=== PATIENT | female | born 1970 | race Hispanic/Latino ===

== ENCOUNTER 2018-04-20 14:02 | Emergency (ER) | payer MEDICAID, OTHER ==
[2018-04-20 14:26] VITALS: BMI 34.0
[2018-04-20 14:31] VITALS: RESP 18; TEMP 98
[2018-04-20 14:36] VITALS: O2SAT 99
[2018-04-20] MEDS ORDERED: DiphenhydrAMINE 50 mg/ml Inj IM STA (14:36)
--- NOTE | 2018-04-20 14:39 | ED PDOC ---
Arrival/HPI - General Historian: Patient <Bernardo Mitchell - Last Filed: 04/20/18 16:20> <Vilma Mcgraw - Last Filed: 04/20/18 17:29> - General Chief Complaint: ENT Problem Time Seen by Provider: 04/20/18 14:36 - History of Present Illness Narrative History of Present Illness (Text): 04/20/18 14:36 48 y/o female, no significant pmh, nkda, post menopausal, c/o rt. ear clogging sensation with nasal congestion on and off x 2 weeks. Pt. stated that she has seasonal allergy, feeling the rt. ear been clogging with on and off ringing sensation, seen by the pmd Dr. Archuleta about 3 days ago and started on the augmentin, no ear pain, no night sweat, no palpitation, no rash, no change in vision, no headache, no numbness or tingling, no other medical or psychological complaints. (Bernardo Mitchell) Past Medical History - Provider Review Nursing Documentation Reviewed: Yes - Infectious Disease Hx of Infectious Diseases: None - Tetanus Immunization Tetanus Immunization: Unknown - Past Medical History Past Medical History: No Previous - Hematological/Oncological Hx Blood Transfusions: No Hx Blood Transfusion Reaction: No - Musculoskeletal/Rheumatological Hx Falls: No - Psychiatric Hx Emotional Abuse: No Hx Physical Abuse: No Hx Substance Use: No - Past Surgical History Past Surgical History: No Previous - Surgical History Hx Cholecystectomy: Yes - Anesthesia Hx Anesthesia: Yes Hx Anesthesia Reactions: No Hx Malignant Hyperthermia: No - Suicidal Assessment Feels Threatened In Home Enviroment: No <Bernardo Mitchell - Last Filed: 04/20/18 16:20> Family/Social History - Physician Review Nursing Documentation Reviewed: Yes Family/Social History: Unknown Family HX Smoking Status: Never Smoked Hx Alcohol Use: No Hx Substance Use: No Hx Substance Use Treatment: No <Bernardo Mitchell - Last Filed: 04/20/18 16:20> Allergies/Home Meds <Bernardo Mitchell - Last Filed: 04/20/18 16:20> <Vilma Mcgraw - Last Filed: 04/20/18 17:29> Allergies/Adverse Reactions: Allergies No Known Allergies Allergy (Verified 08/02/13 10:45) Home Medications: Home Meds Medication Instructions Recorded Confirmed Amoxicillin/Clavulanate [Augmentin 1 tab PO BID 04/20/18 04/20/18 875 MG-125 MG Tab] Review of Systems - Review of Systems Constitutional: absent: Fatigue, Fevers Eyes: absent: Vision Changes ENT: Rhinorrhea, Other (Rt. ear clogging sensation and ringing). absent: Hearing Changes, Sore Throat Respiratory: absent: SOB, Cough Cardiovascular: absent: Chest Pain Gastrointestinal: absent: Abdominal Pain, Diarrhea, Nausea, Vomiting Skin: absent: Rash, Pruritis Neurological: absent: Headache, Dizziness Psychiatric: absent: Anxiety, Depression <PaulaBernardo Q - Last Filed: 04/20/18 16:20> Physical Exam Vital Signs Reviewed: Yes Temperature: Afebrile Blood Pressure: Normal Pulse: Regular Respiratory Rate: Normal Appearance: Positive for: Well-Appearing, Non-Toxic, Comfortable Pain Distress: None Mental Status: Positive for: Alert and Oriented X 3 - Systems Exam Head: Present: Atraumatic, Normocephalic Pupils: Present: PERRL Extroacular Muscles: Present: EOMI Conjunctiva: Present: Normal Ears: Present: NORMAL TM, Normal Canal, Other (no visible ceruman impaction, bilatearl hearing grossly intact. ). No: Erythema, TM Bulging, Fluid, TM Perf Mouth: Present: Moist Mucous Membranes Pharnyx: No: ERYTHEMA, EXUDATE, TONSILS ENLARGED Nose (External): Present: Atraumatic. No: Abrasion, Contusion, Laceration Nose (Internal): Present: Normal Inspection, No Active Bleeding, Rhinorrhea. No : Septal Deviation, Septal Hematoma, Epistaxis Neck: Present: Normal Range of Motion, Trachea Midline. No: Meningeal Signs, MIDLINE TENDERNESS, Paraspinal Tenderness, Lymphadenopathy Respiratory/Chest: Present: Clear to Auscultation, Good Air Exchange. No: Respiratory Distress, Accessory Muscle Use, Wheezes, Decreased Breath Sounds, Retracting, Rhonchi, Tachypneic Cardiovascular: Present: Regular Rate and Rhythm, Normal S1, S2. No: Murmurs Abdomen: No: Tenderness, Distention, Peritoneal Signs, Rebound, Guarding Back: Present: Normal Inspection Upper Extremity: Present: Normal Inspection. No: Cyanosis, Edema Lower Extremity: Present: Normal Inspection. No: Edema Neurological: Present: GCS=15, CN II-XII Intact, Speech Normal, Motor Func Grossly Intact, Gait Normal, Memory Normal Skin: Present: Warm, Dry, Normal Color. No: Rashes Psychiatric: Present: Alert, Oriented x 3, Normal Insight, Normal Concentration <Bernardo Mitchell - Last Filed: 04/20/18 16:20> Vital Signs Temp Pulse Resp BP Pulse Ox 04/20/18 16:34 77 18 102/76 99 04/20/18 14:28 98.0 F 75 18 131/81 99 Medical Decision Making <Bernardo Mitchell - Last Filed: 04/20/18 16:20> <Vilma Mcgraw - Last Filed: 04/20/18 17:29> ED Course and Treatment: 04/20/18 14:39 -benadryl/sudafed and motrin -Observe and reassess 04/20/18 16:21 -Pt. feels better, ENT complaints and symptoms improved but still feeling clogging sensation, differential explained including menier's disease which she needs to see ENT and PMD for follow up. There is no visible trauma or signs of infection noted. -Discharge home with claritin d24, flonase, medrodose robbin, stay hydrated, follow up with your own pmd and ENT within 2 days, return to the ER for any new or worsening signs or symptoms. (Bernardo Mitchell) - Medication Orders Current Medication Orders: Discontinued Medications Diphenhydramine HCl (Benadryl) 50 mg IM STAT STA Stop: 04/20/18 14:37 Last Admin: 04/20/18 14:46 Dose: 50 mg IM Administration Charges Document 04/20/18 14:46 GMD (Rec: 04/20/18 14:46 GMD [id number]) Injection Site MAR Injection Site Left Deltoid Charges for Administration # of IM Administrations 1 Ibuprofen (Motrin Tab) 800 mg PO STAT STA Stop: 04/20/18 14:39 Last Admin: 04/20/18 14:46 Dose: 800 mg Pseudoephedrine HCl (Sudafed Tab) 30 mg PO STAT STA Stop: 04/20/18 14:42 Last Admin: 04/20/18 14:46 Dose: 30 mg - PA / [employer]ADLE [employer] / Resident Statement MD/DO has reviewed & agrees with the documentation as recorded. <Bernardo Mitchell - Last Filed: 04/20/18 16:20> - PA / [employer] / Resident Statement / has reviewed & agrees with the documentation as recorded. <Vilma Mcgraw - Last Filed: 04/20/18 17:29> Disposition/Present on Arrival - Present on Arrival Any Indicators Present on Arrival: No History of DVT/PE: No History of Uncontrolled Diabetes: No Urinary Catheter: No History of Decub. Ulcer: No History Surgical Site Infection Following: None - Disposition Have Diagnosis and Disposition been Completed?: Yes Disposition Time: 16:24 Patient Plan: Discharge <Bernardo Mitchell - Last Filed: 04/20/18 16:20> <Vilma Mcgraw - Last Filed: 04/20/18 17:29> - Disposition Diagnosis: Allergic rhinitis, Clogged ear Disposition: HOME/ ROUTINE Condition: IMPROVED Additional Instructions: -Discharge home with claritin d24, flonase, medrodose robbin, stay hydrated, follow up with your own pmd and ENT within 2 days, return to the ER for any new or worsening signs or symptoms. Prescriptions: Fluticasone Propionate [Flonase] 1 actuation NS DAILY #1 bottle Loratadine/Pseudoephedrine [Claritin-D 24 Hour Tablet] 1 each PO DAILY #7 tab.er.24h Methylprednisolone [Medrol Dose Pack (21 tabs)] 4 mg PO DAILY #1 pkt Referrals: Tommy Sanders DO [Staff Provider] - Follow up with primary Jeanine Archuleta MD [Family Provider] - Follow up with primary Forms: WORK NOTE
[2018-04-20 16:35] VITALS: BP 102/76; PULSE 77
== END 2018-04-20 16:36 | disposition home or self-care (01) ==
LOC: ED 14:02
DX: J30.9 Allergic rhinitis, unspecified (principal); H93.8X1 Other specified disorders of right ear
CPT/HCPCS: 96372; 99283; J1200